=== PATIENT | female | born 1945 | race Caucasian/White ===

== ENCOUNTER → 2016-09-30 | Outpatient (CLI) | payer OTHER ==
[~2016-09-30] MED LIST: ALDACTONE25 MG PO; APRESOLINE50 M1 PO; ARICEPT5 MG PO; ASPIRIN81 M1 PO; ASPIRIN81 M2 PO; AZOR 10/40 M1 TABLET PO; Aspirin E.C. PO; Azor 10/40 mg PO; CALCITRATE + D1 EACH PO; CHILD ASPIRIN81 M1 PO; CRESTOR40 MG PO; EFFEXOR25 MG PO; Effexor XR PO; FENOFIBRATE160 M1 PO; GEMFIBROZIL600 MG PO; LOFIBRA,TRIGLI160 MG PO; LOPRESSOR50 MG PO; Lopressor PO; MULTIVITAMIN1 EAC2 PO; NITROSTAT0.4 MG PO; NORVASC10 MG PO; Norvasc PO; PRAVACHOL40 MG PO; PRAVASTATIN SOD80 MG PO; PRILOSEC40 MG PO; Protonix PO; SUPER B COMPLE1 EAC1 PO; TRICOR145 MG PO; Tricor PO; VITAMIN D1000 INTUN PO
== END | disposition home or self-care (01) ==
LOC: RAD 09-28 09:00
DX: N26.1 Atrophy of kidney (terminal) (principal); I10 Essential (primary) hypertension; Q61.9 Cystic kidney disease, unspecified; E55.0 Rickets, active
CPT/HCPCS: 76770

== ENCOUNTER 2017-05-26 13:58 | Inpatient (IN) | payer OTHER ==
[~2017-05-26] VITALS: Ht 154.9 cm; Wt 88.5 kg
[~2017-05-26 13:58] MED LIST changes: +METOPROLOL SUCC50 MG PO; +OMEPRAZOLE40 M1 PO; -SUPER B COMPLE1 EAC1 PO; +VITAMIN B-125000 MCG SL
[2017-05-26 14:33] LABS: BASOPHIL (%) 0.5 % (0-1); BASOPHIL COUNT 0.1 K/uL (0-0.1); EOSINOPHIL COUNT 0.2 K/uL (0-0.3); HEMATOCRIT 40.7 % (36.0-46.0); HEMOGLOBIN 13.8 G/DL (11.9-15.5); IMMATURE GRANULOCYTE (%) 0.4 % (0.0-0.7); LYMPHOCYTE (%) 18.2 % (15-42); LYMPHOCYTE COUNT 1.7 K/uL (1.0-2.8); MCH 31.1 PG (29.0-34.0); MCHC 33.9 G/DL (30.0-36.0); MCV 91.7 FL (83-99); MONOCYTE (%) 7.1 % (3-12); MONOCYTE COUNT 0.7 K/uL (0-0.8); NEUTROPHIL (%) 71.8 % (45-76); NEUTROPHIL COUNT 6.6 K/uL (1.8-6.4); PLATELET COUNT 175 K/uL (156-360); RBC DIS.WIDTH-CV 12.9 % (11.8-14.6); RBC DIS.WIDTH-SD 43.3 % (39-53); RED BLOOD COUNT 4.44 M/uL (3.80-5.20); WHITE BLOOD COUNT 9.2 K/uL (4.1-10.2)
[2017-05-26 14:42] LABS: ALBUMIN 4.1 g/dL (3.2-4.8); CHLORIDE 111 mEq/L (99-109); POTASSIUM 4.5 mEq/L (3.7-5.4); SODIUM 142 mEq/L (136-147)
[2017-05-26 14:45] LABS: GLUCOSE 163 mg/dL (70-99)
[2017-05-26 14:48] LABS: ALKALINE PHOSPHATASE 128 IU/L (3-129); CREATININE 1.8 mg/dL (0.6-1.3); GFR ESTIMATE (CALCULATED) 29 mL/min/; TOTAL BILIRUBIN 0.4 mg/dL (0.0-1.0)
[2017-05-26 14:49] LABS: UREA NITROGEN (BUN) 31 mg/dL (9-23)
[2017-05-26 14:50] LABS: AST (GOT) 20 IU/L (2-34)
[2017-05-26 14:51] LABS: ALT (GPT) 14 IU/L (3-49)
[2017-05-26 14:54] LABS: TROP-I INTERPRETATION INDETERMINATE; TROPONIN-I 0.48 ng/mL (0.0-0.30)
[2017-05-26 15:03] LABS: LIPASE 22 U/L (1.0-51.0)
[2017-05-26] MEDS ORDERED: PLAVIX75 MG PO (15:22)
[2017-05-26] MEDS ORDERED: ERGOCALCIF50000 UNIT PO (15:22)
[2017-05-26] MEDS ORDERED: DAILY VALUE1 EACH PO (15:22)
[2017-05-26] MEDS ORDERED: WELCHOL625 MG PO (15:22)
[2017-05-26 21:09] VITALS: BP 140/66
[2017-05-26 22:32] LABS: TROP-I INTERPRETATION POSITIVE; TROPONIN-I 0.87 ng/mL (0.0-0.30)
[2017-05-27 00:09] VITALS: BP 131/60
[2017-05-27 04:43] VITALS: BP 128/71
[2017-05-27 05:49] LABS: BASOPHIL (%) 0.4 % (0-1); EOSINOPHIL (%) 2.9 % (0-5); EOSINOPHIL COUNT 0.2 K/uL (0-0.3); HEMATOCRIT 37.6 % (36.0-46.0); HEMOGLOBIN 12.3 G/DL (11.9-15.5); IMMATURE GRANULOCYTE (%) 0.4 % (0.0-0.7); LYMPHOCYTE (%) 26.2 % (15-42); LYMPHOCYTE COUNT 2.2 K/uL (1.0-2.8); MCH 30.1 PG (29.0-34.0); MCHC 32.7 G/DL (30.0-36.0); MCV 91.9 FL (83-99); MONOCYTE (%) 10.5 % (3-12); MONOCYTE COUNT 0.9 K/uL (0-0.8); NEUTROPHIL (%) 59.6 % (45-76); PLATELET COUNT 169 K/uL (156-360); RBC DIS.WIDTH-CV 13.1 % (11.8-14.6); RED BLOOD COUNT 4.09 M/uL (3.80-5.20); WHITE BLOOD COUNT 8.4 K/uL (4.1-10.2)
[2017-05-27 06:12] LABS: TROPONIN-I 0.72 ng/mL (0.0-0.30)
[2017-05-27 06:13] LABS: TROP-I INTERPRETATION POSITIVE
[2017-05-27 07:04] LABS: ALBUMIN 3.6 G/DL (3.2-4.8); ALKALINE PHOSPHATASE 87 IU/L (3-129); ALT (GPT) 11 IU/L (3-49); AST (GOT) 17 IU/L (2-34); CHLORIDE 112 MEQ/L (99-109); CREATININE 1.6 MG/DL (0.6-1.3); GFR ESTIMATE (CALCULATED) 34 mL/min/; HDL CHOLESTEROL 36 MG/DL (Desirable>=50); LDL CHOLESTEROL 162 mg/dL (Desirable<100); NON-HDL CHOLESTEROL 191 mg/dL (Desirable<160); POTASSIUM 4.3 MEQ/L (3.7-5.4); SODIUM 145 MEQ/L (136-147); TOTAL BILIRUBIN 0.4 MG/DL (0.0-1.0); TOTAL CHOLESTEROL 227 mg/dL (Desirable<200); TOTAL PROTEIN 5.5 G/DL (6.4-8.3); TRIGLYCERIDES 146 MG/DL (Normal: <150); UREA NITROGEN (BUN) 29 mg/dL (9-23)
[2017-05-27 07:10] LABS: GLUCOSE 92 mg/dL (70-99)
[2017-05-27 07:33] VITALS: BP 149/71
[2017-05-27 08:18] LABS: THYROTROPIN (TSH) 2.9 MIU/L (0.4-5.5)
[2017-05-27 11:08] VITALS: BP 132/68
[2017-05-27 15:08] LABS: TROP-I INTERPRETATION INDETERMINATE
[2017-05-27 22:30] VITALS: BP 135/76
[2017-05-28 07:07] VITALS: BP 132/62
[2017-05-28 11:38] VITALS: BP 144/56
[2017-05-28] MEDS ORDERED: PRAVASTATIN SOD80 MG PO (13:19)
[2017-05-28] MEDS ORDERED: TYLENOL REGULA325 MG PO (13:20)
[2017-05-28] MEDS ORDERED: NITROSTAT0.4 MG SL (13:20)
[2017-05-28] MEDS ORDERED: ASPIR-LOW81 MG PO (13:20)
== END 2017-05-28 15:12 | disposition home or self-care (01) | DRG 247 ==
LOC: EME 13:58 → 5WEST 20:08 → EDOF 20:08 → ENRESERV 20:17 → 5WEST 20:50 → 4EAST 05-27 12:30 → 5WEST 05-27 17:11 → ENRESERV 05-27 17:11 → 4EAST 05-27 21:09 → ENPENDDIS 05-28 → 4EAST 05-28 15:12
PROVIDERS: Emergency Medicine; Internal Medicine
DX: I25.110 Atherosclerotic heart disease of native coronary artery with unstable angina pectoris (principal); I12.9 Hypertensive chronic kidney disease with stage 1 through stage 4 chronic kidney disease, or unspecified chronic kidney disease; N18.3 Chronic kidney disease, stage 3 (moderate); E86.0 Dehydration; N28.9 Disorder of kidney and ureter, unspecified; E78.5 Hyperlipidemia, unspecified; K21.9 Gastro-esophageal reflux disease without esophagitis; I45.10 Unspecified right bundle-branch block; F03.90 Unspecified dementia, unspecified severity, without behavioral disturbance, psychotic disturbance, mood disturbance, and anxiety; R29.6 Repeated falls; E66.9 Obesity, unspecified; Z68.36 Body mass index [BMI] 36.0-36.9, adult; I25.2 Old myocardial infarction; Z98.61 Coronary angioplasty status; Z86.73 Personal history of transient ischemic attack (TIA), and cerebral infarction without residual deficits; Z79.02 Long term (current) use of antithrombotics/antiplatelets; Z87.891 Personal history of nicotine dependence; Z91.81 History of falling
CPT/HCPCS: 71045; 76705; 80053; 80061; 83690; 84443; 84484; 85025; 85347; 85610; 85730; 93005; 99281; 99285; C1725; C1769; C1874; C1887; C1894; G0378; J0461; J1200; J1644; J2250; J3246; J7030; J7040

== ENCOUNTER 2017-09-13 22:27 | Emergency (ER) | payer OTHER ==
[~2017-09-13] VITALS: Ht 157.5 cm; Wt 97.7 kg
[~2017-09-13 22:27] MED LIST changes: +ASPIR-LOW81 MG PO; +DAILY VALUE1 EACH PO; +ERGOCALCIF50000 UNIT PO; +NITROSTAT0.4 MG SL; +PLAVIX75 MG PO; +TYLENOL REGULA325 MG PO; +WELCHOL625 MG PO
[2017-09-14 01:04] VITALS: BP 129/68
== END 2017-09-14 01:06 | disposition home or self-care (01) ==
LOC: EME 22:27
DX: S40.011A Contusion of right shoulder, initial encounter (principal); W01.0XXA Fall on same level from slipping, tripping and stumbling without subsequent striking against object, initial encounter; I10 Essential (primary) hypertension; E78.5 Hyperlipidemia, unspecified; I25.2 Old myocardial infarction; Z86.73 Personal history of transient ischemic attack (TIA), and cerebral infarction without residual deficits
CPT/HCPCS: 73030; 99281; 99284